=== PATIENT | male | born 1995 | race Caucasian/White ===

== ENCOUNTER 2018-03-30 10:05 | Emergency (ER) | payer OTHER ==
--- NOTE | 2018-03-30 10:33 | EDPHY ---
General Time Seen by Provider: 03/30/18 10:24 Narrative: CLINICAL IMPRESSION: Left shoulder pain ASSESSMENT/PLAN: 23-year-old male with a history of previous left shoulder dislocations, left clavicle fracture, presents to the emergency department with acute left shoulder pain and possible dislocation with self reduction after swinging a hammer at work today at [employer]. Patient arrives with his arm in a sling, no clinical signs of anterior dislocation, neurovascular exam intact. No radiologic evidence of acute fracture or dislocation. Patient may have chronic rotator cuff instability or other ligamentous injury. He was placed in a sling, given orthopedic follow-up, prescription for analgesics provided, warning signs return to ED sooner alignment discharge. DIFFERENTIAL DX: Differential includes but not limited to acute fracture, strain/sprain, joint dislocation, soft tissue contusion ED PROCEDURES: Procedure: Splint placement. A left arm sling splint was applied to left arm by opthalmic tech, supervised by myself. After application of the splint I returned and re-examined the patient. The splint was adequately immobilizing the joint and distal to the splint the patient's circulation and sensation was intact. ED COURSE: 10:30 a.m.:. Patient will be x-rayed to assess for fracture or dislocation. 10:57 a.m.:. X-rays reviewed by myself. No evidence of dislocation or fracture. Will place patient in sling and referred to Orthopedics. CHIEF COMPLAINT: Left shoulder pain HPI: 23-year-old left-hand dominant male presents to the emergency department with left shoulder pain. Patient reports a past history of left shoulder dislocation at age 19, a left clavicle fracture at age 13, and recently reported "sleeping on the shoulder wrong". Today while at work at [employer] he swung a hammer and felt significant pain and"possible dislocation"of his left shoulder. He attempted to reach locate the shoulder himself, felt several pops, but continues to have pain. No reported trauma today. No elbow, wrist, hand finger numbness. No other injuries. He has never had surgery for his shoulder. PAST MEDICAL HISTORY: None reported Pertinent Past Surgical History: None reported Social History: Works at [employer] REVIEW OF SYSTEMS: All other systems negative Constitutional: No fever, no chills Musculoskeletal: No deformity, + joint pain Skin: No rashes, color change or open wounds. Neurological: No sensory loss or weakness. PHYSICAL EXAM: General Appearance: Alert, oriented, appropriate for age, cooperative, NAD, well hydrated, non-toxic appearing, VSS, no hypoxia. Neurological: Alert and oriented x 3, normal sensation and strength of extremities Skin: Warm, dry, no rashes, no nodules on palpation. Musculoskeletal: Clinically, no obvious deformity of the left shoulder. Patient has pain with attempts to abduct and externally rotate the shoulder. Full range of motion of the left elbow, wrist hand and fingers. Distal neurovascular exam intact. Intact sensation over the deltoid. MEDICAL DECISION MAKING: Patient was seen independently. Secondary supervising physician at time of evaluation was Dr. Arora. Diagnosis: Left shoulder strain. New, requires workup Summary: See assessment and plan for summary of ED visit Independent visualization of images, tracing, or specimens yes. Patient Progress: Improved. - Diagnostics Imaging Results: Imaging Impressions Shoulder X-Ray 03/30/18 10:21 Impression: Normal. No source for pain identified. - History Smoking Status: Light smoker - Objective Vital Signs: Initial Vital Signs Temperature (C) 36.3 C 03/30/18 10:17 Heart Rate 66 03/30/18 10:17 Respiratory Rate 18 03/30/18 10:17 Blood Pressure 127/79 H 03/30/18 10:17 O2 Sat (%) 95 03/30/18 10:17 O2 Delivery Mode Room Air Allergies/Adverse Reactions: erythromycin base Allergy (Verified 03/30/18 10:21) Home Medications: Medication Instructions Recorded Hydrocodone/APAP [Cast[place] 1 - 2 tab PO Q4H PRN #10 tab 03/30/18 5/325 (*)] Departure - Departure Disposition: Home, Routine, Self-Care Clinical Impression: Shoulder pain, left Qualifiers: Chronicity: acute Qualified Code(s): M25.512 - Pain in left shoulder Condition: Good Instructions: Shoulder Pain (ED) Additional Instructions: DISCHARGE INSTRUCTIONS FROM YOUR DOCTOR Thank you for visiting our emergency department today. Please keep in mind that discharge from the emergency department does not mean that there is nothing wrong - it simply means that we have not identified an emergency condition that requires further evaluation or treatment in the hospital. You should always plan to follow up with primary care for re-evaluation of your condition in the next 2-3 days. If you have been referred to a specialist, please call as soon as possible (today or tomorrow) to schedule your follow up appointment at the appropriate time. X-RAYS TODAY DO NOT SHOW DISLOCATION OR FRACTURE. YOU MAY HAVE DISLOCATED THE SHOULDER AT THE SKI AREA AND RELOCATED IT YOUR SELF X-RAYS DO NOT EVALUATE FOR ROTATOR CUFF INJURIES OR LIGAMENTOUS INJURY. YOU MAY NEED AN MRI. WE DO NOT PERFORM MRIS IN THE EMERGENCY ROOM. A REFERRAL TO ORTHOPEDICS WAS PROVIDED. A PRESCRIPTION FOR PAIN MEDICATION WAS GIVEN TO USE IF NEEDED. PLEASE TRY USING TYLENOL, IBUPROFEN, ICE OR HEAT 1ST. DO NOT DRIVE OR DRINK ALCOHOL WHILE TAKING NARCOTIC PAIN MEDICATION. PLEASE BE AWARE, NARCOTICS CAN CAUSE CONSTIPATION, LETHARGY, AND INCREASE YOUR RISK OF FALLING. DO NOT TAKE TYLENOL AT THE SAME TIME VICODIN OR PERCOCET. WEAR THE SLING FOR COMFORT. RETURN TO THE EMERGENCY DEPARTMENT FOR WORSENING PAIN, LOSS OF SENSATION TO THE HAND FINGERS OR ARM, FEVERS OR ANY OTHER CONCERNS. People present with illnesses and injuries in different ways, and it is always possible that we have missed something. You may always return for re-evaluation if symptoms worsen or if they are not improving or if you develop new/different symptoms. Again, thank you for choosing our emergency department. We hope that you feel better. Referrals: NONE *PRIMARY CARE P,. [Primary Care Provider] - As per Instructions Teodoro Subramanian MD [Medical Doctor] - 2-3 days without fail Stand Alone Forms: Work Excuse Prescriptions: Hydrocodone/APAP 5/325 [Cast[place] 5/325 (*)] 1 - 2 tab PO Q4H PRN #10 tab PRN Reason: Pain, Moderate
[2018-03-30 11:11] VITALS: BP 116/76
== END 2018-03-30 11:13 | disposition home or self-care (01) ==
DX: M25.512 Pain in left shoulder (principal); X50.0XXA Overexertion from strenuous movement or load, initial encounter; Y93.H3 Activity, building and construction; Y99.0 Civilian activity done for income or pay
CPT/HCPCS: A4565